=== PATIENT | male | born 1990 | race Caucasian/White ===

== ENCOUNTER 2017-03-08 18:55 | Emergency (ER) | payer OTHER ==
[2017-03-08] MEDS ORDERED: Sodium Chloride 0.9% 1,000 ML IV ONE (19:20)
[2017-03-08] MEDS ORDERED: Sodium Chloride 0.9% 1,000 ML ONE (19:22)
[2017-03-08 19:40] LABS: BASO # 0.1 K/uL (0.0-0.2); BASO % 0.6 % (0.0-2.0); EOS # 0.3 K/uL (0.0-0.7); HEMATOCRIT 49.8 % (35.0-51.0); LYMPH # 2.2 K/uL (1.0-4.3); LYMPH % 23.5 % (20.0-40.0); MEAN CORPUSCULAR HEMOGLOBIN 29.5 pg (27.0-31.0); MEAN CORPUSCULAR HGB CONC 32.8 g/dL (33.0-37.0); MEAN PLATELET VOLUME 8.2 fL (7.2-11.7); MONO # 1.2 K/uL (0.0-0.8); MONO % 12.9 % (0.0-10.0); NRBC % 0.1 % (0.0-2.0); RED CELL DISTRIBUTION WIDTH 13.5 % (11.5-14.5); WHITE BLOOD COUNT 9.5 K/uL (4.8-10.8)
--- NOTE | 2017-03-08 19:44 | C.PDOC ---
History Of Present Illness The patient, a 26 y/o male with no significant past medical history, presents to the ED for evaluation of nausea, vomiting, and diarrhea which began around 3 days ago. Patient states he may have eaten an egg sandwich 2 days prior to the onset of his symptoms. Otherwise, patient denies fever, chills, and abdominal pain. Time Seen by Provider: 03/08/17 19:13 Chief Complaint (Nursing): Abdominal Pain History Per: Patient History/Exam Limitations: no limitations Onset/Duration Of Symptoms: Days (3) Current Symptoms Are (Timing): Still Present Radiation Of Pain To:: None Quality Of Discomfort: denies: "Pain" Associated Symptoms: Nausea, Vomiting, Diarrhea. denies: Fever, Chills Exacerbating Factors: Food Alleviating Factors: None Last Bowel Movement: Today Additional History Per: Patient Past Medical History Reviewed: Historical Data, Nursing Documentation, Vital Signs Vital Signs: Last Vital Signs Temp 98.2 F 03/08/17 18:59 Pulse 104 H 03/08/17 18:59 Resp 19 03/08/17 18:59 BP 135/80 03/08/17 18:59 Pulse Ox 100 03/08/17 19:44 - Medical History PMH: No Chronic Diseases Surgical History: No Surg Hx - [facility] Procedures INDIVID PSYCHOTHERAP NEC (02/05/14) OTHER GROUP THERAPY (02/05/14) PSYCHIA INTERV/EVAL NEC (07/28/13) Family History: States: Unknown Family Hx - Social History Hx Tobacco Use: No Hx Alcohol Use: No Hx Substance Use: No - Immunization History Hx Tetanus Toxoid Vaccination: No Hx Influenza Vaccination: No Hx Pneumococcal Vaccination: No Review Of Systems Except As Marked, All Systems Reviewed And Found Negative. Constitutional: Negative for: Fever, Chills Gastrointestinal: Positive for: Nausea, Vomiting, Diarrhea. Negative for: Abdominal Pain Physical Exam - Physical Exam Appears: Non-toxic, No Acute Distress, Other (morbidly obese ) Skin: Normal Color, Warm, Dry Head: Atraumatic, Normacephalic Eye(s): bilateral: Normal Inspection, EOMI Oral Mucosa: Moist Neck: Normal ROM, Supple Chest: Symmetrical, No Deformity, No Tenderness Cardiovascular: Rhythm Regular, No Murmur Respiratory: Normal Breath Sounds, No Rales, No Rhonchi, No Wheezing Gastrointestinal/Abdominal: Soft, No Tenderness, No Guarding, No Rebound, Other (+obese ) Back: Normal Inspection Extremity: Normal ROM, Capillary Refill (less than 2 seconds ) Neurological/Psych: Oriented x3, Normal Speech, Normal Cognition Gait: Steady ED Course And Treatment - Laboratory Results Result Diagrams: 03/08/17 19:34 03/08/17 19:34 Lab Interpretation: Normal (ua neg.) O2 Sat by Pulse Oximetry: 100 (on RA) Pulse Ox Interpretation: Normal Progress Note: Labs ordered and reviewed. Patient received Pepcid IV, Toradol IV , Zofran IV, and IV Fluids. Reevaluation Time: 20:02 Reassessment Condition: Improved Medical Decision Making Medical Decision Making: gastroenteritis, resolving, no s/s of obstruction/dehydration Disposition Doctor Will See Patient In The: Office Counseled Patient/Family Regarding: Studies Performed, Diagnosis - Disposition Disposition: HOME/ ROUTINE Disposition Time: 20:02 Condition: GOOD - Clinical Impression Clinical Impression: Abdominal colic - Scribe Statement The provider has reviewed the documentation as recorded by the Scribe (Michelle Chun) Provider Attestation: All medical record entries made by the Scribe were at my direction and personally dictated by me. I have reviewed the chart and agree that the record accurately reflects my personal performance of the history, physical exam, medical decision making, and the department course for this patient. I have also personally directed, reviewed, and agree with the discharge instructions and disposition.
[2017-03-08 19:45] LABS: RBC URINE < 1 /hpf (0-3); URINE BILIRUBIN NEGATIVE (NEGATIVE); URINE BLOOD NEGATIVE (NEGATIVE); URINE COLOR Yellow (YELLOW); URINE GLUCOSE (UA) NORMAL (Normal); URINE KETONE NEGATIVE (NEGATIVE); URINE LEUKOCYTE ESTERASE NEG Leu/uL (Negative); URINE PROTEIN 1+ mg/dL (NEGATIVE); URINE UROBILINOGEN NORMAL mg/dL (0.2-1.0); WBC URINE 3 /hpf (0-5)
[2017-03-08 19:49] LABS: CHLORIDE 105 mmol/L (98-107)
[2017-03-08 19:50] LABS: POTASSIUM 4.7 mmol/L (3.6-5.2); SODIUM 139 mmol/L (132-148)
[2017-03-08 19:52] LABS: ALB/GLOB RATIO 1.1 (1.0-2.1); ALKALINE PHOSPHATASE 67 U/L (38-126); AST/SGOT 35 U/L (17-59); BILIRUBIN,TOTAL 0.6 mg/dL (0.2-1.3); BLOOD UREA NITROGEN 19 mg/dL (9-20); CARBON DIOXIDE 20 mmol/L (22-30); GFR AFRICAN-AMERICAN > 60; GLUCOSE,RANDOM 94 mg/dL (75-110); TOTAL PROTEIN 9.4 g/dL (6.3-8.3)
[2017-03-08 19:53] LABS: ALT/SGPT 53 U/L (21-72); CALCIUM 9.3 mg/dl (8.6-10.4)
[2017-03-08 20:18] VITALS: BP 121/81; PULSE 76; RESP 18; TEMP 98.4; O2SAT 99
== END 2017-03-08 20:18 | disposition home or self-care (01) ==
LOC: C.ER 18:55
DX: R10.84 Generalized abdominal pain (principal)
CPT/HCPCS: 80053; 81001; 83690; 85025; 96361; 96374; 96375; 99284; J1885; J2405; J7040